=== PATIENT | male | born 1940 | race Caucasian/White ===

== ENCOUNTER 2018-02-23 14:10 | Inpatient (IN) | payer OTHER, BC ==
--- NOTE | 2018-02-23 15:14 | RAD REPORT ---
EXAM DESCRIPTION: RAD - Chest Single View - 02/23/2018 3:08 pm CLINICAL HISTORY: CHEST PAIN Chest pain. COMPARISON: No comparisons FINDINGS: Portable technique limits examination quality. The lungs are grossly clear. The heart is upper limit of normal in size. No displaced fractures. IMPRESSION: No acute intrathoracic process suspected.
[2018-02-23 16:14] LABS: Absolute Lymphocytes (CBC) 1.2 K/uL (0.7-4.9); Absolute Monocytes 0.5 K/uL (0.1-1.3); Absolute Neutrophil 4.2 K/uL (1.8-8.0); Basophils % 0.7 % (0-1.3); Hematocrit 43.2 % (39.6-49.0); Lymphocytes % 19.9 % (15.3-44.8); MCH 31.2 pg (27.0-35.0); MCV 91.1 fL (80-100); Monocytes % 7.8 % (3.3-12.3); RBC Red Blood Cell Count 4.74 M/uL (4.33-5.43)
[2018-02-23 16:19] LABS: Protime INR 1.05
[2018-02-23 16:54] LABS: ALT/SGPT 35 U/L (12-78); AST/SGOT 47 U/L (15-37); Albumin 3.9 g/dL (3.4-5.0); Alkaline Phosphatase 71 U/L (45-117); BUN Blood Urea Nitrogen 14 mg/dL (7-18); Bicarbonate 24 mmol/L (21-32); Bilirubin Direct 0.2 mg/dL (0-0.2); Bilirubin Total 0.6 mg/dL (0.2-1.0); Glucose Level 93 mg/dL (74-106); Magnesium 2.3 mg/dL (1.8-2.4); NT PRO-BNP 1105 pg/mL (<450); Potassium 3.9 mmol/L (3.5-5.1); Protein, Total 7.5 g/dL (6.4-8.2); Sodium Level 142 mmol/L (136-145)
[2018-02-23 16:56] LABS: Troponin (Emerg Dept Use Only) 6.76 ng/mL (0.0-0.045)
[2018-02-23] MEDS ORDERED: ACETAMINOPHEN 500 MG TAB PO PRN (17:21)
[2018-02-23] MEDS: CLOPIDOGREL 75 MG TABLET PO SCH (17:21)
[2018-02-23] MEDS: ASPIRIN EC 81 MG TAB PO SCH (17:21)
[2018-02-23] MEDS ORDERED: ONDANSETRON 4 MG/2 ML VIAL IV PRN (17:21)
[2018-02-23] MEDS ORDERED: NITROGLYCERIN 0.4 MG/TAB SL PRN (17:21)
[2018-02-23] MEDS ORDERED: MORPHINE 2 MG/ML SYR IV PRN (17:21)
[2018-02-23] MEDS ORDERED: ASPIRIN 81 MG CHEWABLE TABLET ONE (17:30)
[2018-02-23] MEDS ORDERED: CLOPIDOGREL 75 MG TABLET ONE (17:31)
[2018-02-23] MEDS ORDERED: HEPARIN/D5W 25,000 UNIT/500 ML BAG IV ONE (17:31)
--- NOTE | 2018-02-23 17:32 | ER ---
Nurse's Notes [facility] Name: Virgilio Moore Age: 77 yrs Sex: Male : 1940 Arrival Date: 02/23/2018 Time: 14:15 Bed 15 Private MD: Sheryl Rendon H Diagnosis: Non-ST elevation (NSTEMI) myocardial infarction Presentation: 02/23 14:16 Presenting complaint: Patient states: Woke up feeling shaky this morning. states, ss "Friday night he had heart burn real bad and stayed up for an hour on the side of the bed." Pt denies CP, shortness of breath. Pt is concerned his BP may be high. Transition of care: patient was not received from another setting of care. Onset of symptoms was February 23, 2018. Risk Assessment: Do you want to hurt yourself or someone else? Patient reports no desire to harm self or others. Initial Sepsis Screen: Does the patient meet any 2 criteria? No. Patient's initial sepsis screen is negative. Does the patient have a suspected source of infection? No. Patient's initial sepsis screen is negative. Care prior to arrival: None. 14:16 Method Of Arrival: Ambulatory ss 14:16 Acuity: DAVID 2 ss Historical: - Allergies: 14:19 No Known Allergies; ss - Home Meds: 14:19 None [Active]; ss - PMHx: 14:19 None; ss - PSHx: 14:19 eye surgery; ss - Immunization history:: Adult Immunizations up to date. - Social history:: Smoking status: Patient uses tobacco products. - Ebola Screening: : Patient denies exposure to infectious person Patient denies travel to an Ebola-affected area in the 21 days before illness onset. Screenin:10 Abuse screen: Denies threats or abuse. Denies injuries from another. Nutritional bp screening: No deficits noted. Tuberculosis screening: No symptoms or risk factors identified. Fall Risk None identified. Assessment: 14:30 General: Appears in no apparent distress. comfortable, Behavior is calm, cooperative, bp appropriate for age. Pain: Denies pain. Neuro: Level of Consciousness is awake, alert, obeys commands, Oriented to person, place, time, situation, Appropriate for age. Cardiovascular: No deficits noted. Respiratory: Airway is patent Respiratory effort is even, unlabored, Respiratory pattern is regular, symmetrical. GI: No signs and/or symptoms were reported involving the gastrointestinal system. : No signs and/or symptoms were reported regarding the genitourinary system. EENT: No deficits noted. Derm: No deficits noted. Musculoskeletal: Circulation, motion, and sensation intact. Range of motion: intact in all extremities. 16:08 Reassessment: LABS REDRAWN AND SENT. ALL CURRENT ORDERS COMPLETED. bp 19:15 Reassessment: Patient appears in no apparent distress at this time. Patient and/or cc3 family updated on plan of care and expected duration. Pain level reassessed. Patient is alert, oriented x 3, equal unlabored respirations, skin warm/dry/pink. Received this male patient from morning shift RN Ronaldo as a case of high blood pressure for admission waiting for bed availability. With IV cannula gauge 20 at the right hand with ongoing heparin infusion 1000 unit/hr running at 20 mL/hr infusing well. 19:50 Reassessment: Room available in ICU bed 2, report handed over to TANVI William for cc3 continuity of care. 20:20 Reassessment: Patient appears in no apparent distress at this time. Patient and/or cc3 family updated on plan of care and expected duration. Pain level reassessed. Patient is alert, oriented x 3, equal unlabored respirations, skin warm/dry/pink. Patient left ER for admission vitally stable, on continuous cardiac monitoring by stretcher escorted by [facility] and [facility] with the family. Vital Signs: 14:19 BP 202 / 96; Pulse 91; Resp 18; Temp 98.1; Pulse Ox 100% on R/A; Weight 93.89 kg; ss Height 5 ft. 8 in. (172.72 cm); Pain 0/10; 15:00 BP 165 / 90; Pulse 87; Resp 14; Pulse Ox 98% ; bp 16:00 BP 161 / 89; Pulse 78; Resp 14; Pulse Ox 98% ; bp 17:00 BP 164 / 92; Pulse 86; Resp 14; Pulse Ox 97% ; bp 18:00 BP 175 / 90; Pulse 88; Resp 14; Pulse Ox 98% ; bp 19:15 BP 136 / 80; Pulse 60; Resp 18 S; Pulse Ox 97% on R/A; Pain 0/10; cc3 20:12 BP 141 / 84; Pulse 61; Resp 16 S; Pulse Ox 98% on R/A; Pain 0/10; cc3 14:19 Body Mass Index 31.47 (93.89 kg, 172.72 cm) ED Course: 14:15 Patient arrived in ED. mr 14:15 Sheryl Rendon is Private Physician. mr 14:18 Triage completed. ss 14:19 Arm band placed on right wrist. ss 14:26 Ronaldo Welch, RN is Primary Nurse. bp 14:30 Inserted saline lock: 20 gauge in right wrist, using aseptic technique. Blood collected.bp 14:40 Mikhail Croft MD is Attending Physician. gs 15:09 XRAY Chest (1 view) In Process Unspecified. EDMS 16:10 Patient has correct armband on for positive identification. Bed in low position. Call bp light in reach. Side rails up X2. Adult w/ patient. 17:31 Mikhail Croft MD is Hospitalizing Provider. gs 19:50 No provider procedures requiring assistance completed. Patient admitted, IV remains in cc3 place. Administered Medications: 17:41 Drug: Aspirin Chewable Tablet 324 mg Route: PO; bp 19:15 Follow up: Response: No adverse reaction cc3 17:41 Drug: PlaVIX 75 mg Route: PO; bp 19:15 Follow up: Response: No adverse reaction cc3 17:47 Drug: Heparin ([place] Drip) 12 units/kg/hr - (HEParin 23025 units, D5W 500 ml) bp {Co-Signature: ss (Marybeth Zaragoza RN).} Route: IV; Rate: calculated rate; Site: right wrist; 19:50 Follow up: IV Status: Infusion continued upon admission cc3 17:58 Drug: Lopressor 25 mg Route: PO; bp 19:15 Follow up: Response: No adverse reaction; Blood pressure is lowered cc3 Outcome: 17:32 Decision to Hospitalize by Provider. gs 19:50 Admitted to ICU accompanied by nurse, accompanied by tech, family with patient, via cc3 stretcher, room 2, on monitor, with chart, Report called to TANVI William 19:50 Condition: stable 19:50 Instructed on the need for admit, Demonstrated understanding of instructions. 20:37 Patient left the ED. cc3 Signatures: Dispatcher [employer] Good mr Marybeth Zaragoza TANVI RN ss Mikhail Croft MD MD Ronaldo Welch, TANVI RN Martha Mccullough 3 Marybeth Zaragoza RN ss
--- NOTE | 2018-02-23 17:33 | EDPHYS ---
Physician Documentation [facility] Name: Virgilio Moore Age: 77 yrs Sex: Male : 1940 Arrival Date: 02/23/2018 Time: 14:15 Bed 15 Private MD: Sheryl Rendon H ED Physician Mikhail Croft HPI: 02/23 17:27 This 77 yrs old Male presents to ER via Ambulatory with complaints of High gs Blood Pressure. 17:27 The patient has elevated blood pressure and discovered this at home. Onset: The gs symptoms/episode began/occurred gradually, 3 day(s) ago. Modifying factors: The symptoms are aggravated by. Associated signs and symptoms: Pertinent positives: chest pain, epigastric burning. Severity of symptoms: At its worst the blood pressure was severe, in the emergency department the blood pressure is unchanged. The patient has experienced similar episodes in the past, a few times. Historical: - Allergies: 14:19 No Known Allergies; ss - Home Meds: 14:19 None [Active]; ss - PMHx: 14:19 None; ss - PSHx: 14:19 eye surgery; ss - Immunization history:: Adult Immunizations up to date. - Social history:: Smoking status: Patient uses tobacco products. - Ebola Screening: : Patient denies exposure to infectious person Patient denies travel to an Ebola-affected area in the 21 days before illness onset. ROS: 17:27 All other systems are negative. gs Exam: 17:27 Head/Face: Normocephalic, atraumatic. Eyes: Pupils equal round and reactive to light, gs extra-ocular motions intact. Lids and lashes normal. Conjunctiva and sclera are non-icteric and not injected. Cornea within normal limits. Periorbital areas with no swelling, redness, or edema. ENT: Nares patent. No nasal discharge, no septal abnormalities noted. Tympanic membranes are normal and external auditory canals are clear. Oropharynx with no redness, swelling, or masses, exudates, or evidence of obstruction, uvula midline. Mucous membranes moist. Neck: Trachea midline, no thyromegaly or masses palpated, and no cervical lymphadenopathy. Supple, full range of motion without nuchal rigidity, or vertebral point tenderness. No Meningismus. Chest/axilla: Normal chest wall appearance and motion. Nontender with no deformity. No lesions are appreciated. Respiratory: Lungs have equal breath sounds bilaterally, clear to auscultation and percussion. No rales, rhonchi or wheezes noted. No increased work of breathing, no retractions or nasal flaring. Abdomen/GI: Soft, non-tender, with normal bowel sounds. No distension or tympany. No guarding or rebound. No evidence of tenderness throughout. Back: No spinal tenderness. No costovertebral tenderness. Full range of motion. Skin: Warm, dry with normal turgor. Normal color with no rashes, no lesions, and no evidence of cellulitis. MS/ Extremity: Pulses equal, no cyanosis. Neurovascular intact. Full, normal range of motion. Neuro: Awake and alert, GCS 15, oriented to person, place, time, and situation. Cranial nerves II-XII grossly intact. Motor strength 5/5 in all extremities. Sensory grossly intact. Cerebellar exam normal. Normal gait. 17:27 Constitutional: The patient appears alert, awake. 17:27 Cardiovascular: Rate: normal, Rhythm: irregular, Pulses: no pulse deficits are appreciated, Heart sounds: murmur, systolic, grade 1 over 6, Edema: 1+ edema to level of left midcalf and right midcalf. 17:27 ECG was reviewed by the Attending Physician. Vital Signs: 14:19 BP 202 / 96; Pulse 91; Resp 18; Temp 98.1; Pulse Ox 100% on R/A; Weight 93.89 kg; ss Height 5 ft. 8 in. (172.72 cm); Pain 0/10; 15:00 BP 165 / 90; Pulse 87; Resp 14; Pulse Ox 98% ; bp 16:00 BP 161 / 89; Pulse 78; Resp 14; Pulse Ox 98% ; bp 17:00 BP 164 / 92; Pulse 86; Resp 14; Pulse Ox 97% ; bp 18:00 BP 175 / 90; Pulse 88; Resp 14; Pulse Ox 98% ; bp 19:15 BP 136 / 80; Pulse 60; Resp 18 S; Pulse Ox 97% on R/A; Pain 0/10; cc3 20:12 BP 141 / 84; Pulse 61; Resp 16 S; Pulse Ox 98% on R/A; Pain 0/10; cc3 14:19 Body Mass Index 31.47 (93.89 kg, 172.72 cm) MDM: 15:59 Patient medically screened. 17:27 Differential diagnosis: hypertensive crisis, Malignant HTN, gerd,mi. Data reviewed: vital signs, nurses notes, lab test result(s), EKG. Counseling: I had a detailed discussion with the patient and/or guardian regarding: the historical points, exam findings, and any diagnostic results supporting the discharge/admit diagnosis, lab results, radiology results, the need for further work-up and treatment in the hospital. 02/23 14:39 Order name: Basic Metabolic Panel 02/23 14:39 Order name: CBC with Diff; Complete Time: 16:50 02/23 14:39 Order name: LFT's 02/23 14:39 Order name: Magnesium 02/23 14:39 Order name: NT PRO-BNP 02/23 14:39 Order name: PT-INR; Complete Time: 16:50 02/23 14:39 Order name: Troponin (emerg Dept Use Only) 02/23 17:34 Order name: Lipid Profile [facility] 02/23 17:34 Order name: CBC with Automated Diff [facility] 02/23 17:34 Order name: CBC with Automated Diff [facility] 02/23 17:34 Order name: Comprehensive Metabolic Panel [facility] 02/23 17:34 Order name: Comprehensive Metabolic Panel [facility] 02/23 17:34 Order name: Magnesium [facility] 02/23 17:34 Order name: Magnesium [facility] 02/23 14:26 Order name: EKG; Complete Time: 14:27 02/23 14:26 Order name: EKG - Nurse/Tech; Complete Time: 16:08 02/23 14:39 Order name: XRAY Chest (1 view); Complete Time: 16:50 02/23 14:39 Order name: Cardiac monitoring; Complete Time: 16:08 02/23 14:39 Order name: IV Saline Lock; Complete Time: 16:08 02/23 14:39 Order name: Labs collected and sent; Complete Time: 16:08 02/23 14:39 Order name: O2 Per Protocol; Complete Time: 16:08 02/23 14:39 Order name: O2 Sat Monitoring; Complete Time: 16:08 02/23 17:34 Order name: CONS Physician Consult [facility] 02/23 17:34 Order name: Heart Healthy [facility] 02/23 17:34 Order name: Echo with Doppler EDMS EC:27 Rate is 81 beats/min. Rhythm is irregular. SD interval is normal. QRS interval is gs normal. QT interval is normal. Q waves are Old in leads V1, V2, V3. T waves are Inverted in leads I, aVL. Clinical impression: NSR w/ Non-specific ST/T Changes. Interpreted by me. Administered Medications: 17:41 Drug: Aspirin Chewable Tablet 324 mg Route: PO; bp 19:15 Follow up: Response: No adverse reaction cc3 17:41 Drug: PlaVIX 75 mg Route: PO; bp 19:15 Follow up: Response: No adverse reaction cc3 17:47 Drug: Heparin ([place] Drip) 12 units/kg/hr - (HEParin 25240 units, D5W 500 ml) bp {Co-Signature: ss (Marybeth Zaragoza RN).} Route: IV; Rate: calculated rate; Site: right wrist; 19:50 Follow up: IV Status: Infusion continued upon admission cc3 17:58 Drug: Lopressor 25 mg Route: PO; bp 19:15 Follow up: Response: No adverse reaction; Blood pressure is lowered cc3 Disposition: 02/23/18 17:32 Hospitalization ordered by Mikhail Croft for Inpatient Admission. Preliminary diagnosis is Non-ST elevation (NSTEMI) myocardial infarction. - Bed requested for Intensive Care Unit. - Status is Inpatient Admission. cc3 - Condition is Stable. - Problem is new. - Symptoms have improved. UTI on Admission? No Critical care time excluding procedures: 17:27 Critical care time: Bedside Care: 10 minutes, Consultation: 10 minutes, Family gs Intervention: 10 minutes. Total time: 30 minutes Signatures: Dispatcher [employer] [facility] Marybeth Zaragoza RN RN ss Yolanda Smalls RN RN Mikhail Croft MD MD Ronaldo Welch RN RN Martha Mccullough cc3 Marybeth Zaragoza RN ss Corrections: (The following items were deleted from the chart) 17:57 17:32 Hospitalization Ordered by Mikhail Croft MD for Inpatient Admission. Preliminary gs diagnosis is Non-ST elevation (NSTEMI) myocardial infarction. Bed requested for Telemetry/MedSurg (Inpatient). Status is Inpatient Admission. Condition is Stable. Problem is new. Symptoms have improved. UTI on Admission? No. 19:20 17:57 02/23/2018 17:32 Hospitalization Ordered by Mikhail Croft MD for Inpatient cg Admission. Preliminary diagnosis is Non-ST elevation (NSTEMI) myocardial infarction. Bed requested for Intensive Care Unit. Status is Inpatient Admission. Condition is Stable. Problem is new. Symptoms have improved. UTI on Admission? No. 20:37 19:20 02/23/2018 17:32 Hospitalization Ordered by Mikhail Croft MD for Inpatient cc3 Admission. Preliminary diagnosis is Non-ST elevation (NSTEMI) myocardial infarction. Bed requested for Intensive Care Unit. Status is Inpatient Admission. Condition is Stable. Problem is new. Symptoms have improved. UTI on Admission? No. cg
[2018-02-23] MEDS ORDERED: METOPROLOL TAR 25 MG TAB ONE (18:00)
[2018-02-23] MEDS ORDERED: HEPARIN/D5W 25,000 UNIT/500 ML BAG IV SCH (19:00)
[2018-02-23] MEDS: METOPROLOL TAR 25 MG TAB PO SCH (21:00)
[2018-02-23] MEDS: ATORVASTATIN 80 MG TAB PO SCH (22:59)
[2018-02-24 05:04] LABS: Absolute Lymphocytes (CBC) 2.1 K/uL (0.7-4.9); Absolute Monocytes 0.9 K/uL (0.1-1.3); Absolute Neutrophil 4.4 K/uL (1.8-8.0); Basophils % 0.6 % (0-1.3); Eosinophils % 3.8 % (0-4.4); Hematocrit 41.1 % (39.6-49.0); Lymphocytes % 27.3 % (15.3-44.8); MCH 31.7 pg (27.0-35.0); MCV 92.8 fL (80-100); MPV 9.9 fL (7.6-11.3); Monocytes % 11.1 % (3.3-12.3); RBC Red Blood Cell Count 4.43 M/uL (4.33-5.43)
[2018-02-24 05:24] LABS: ALT/SGPT 31 U/L (12-78); AST/SGOT 68 U/L (15-37); Albumin 3.3 g/dL (3.4-5.0); Alkaline Phosphatase 57 U/L (45-117); BUN Blood Urea Nitrogen 12 mg/dL (7-18); Bicarbonate 27 mmol/L (21-32); Bilirubin Total 0.6 mg/dL (0.2-1.0); Glucose Level 109 mg/dL (74-106); HDL Cholesterol 44 mg/dL (40-60); LDL Cholesterol, Calculated 145 (<130); Magnesium 2.2 mg/dL (1.8-2.4); Potassium 4.1 mmol/L (3.5-5.1); Protein, Total 6.5 g/dL (6.4-8.2); Sodium Level 140 mmol/L (136-145)
--- NOTE | 2018-02-24 07:06 | EKG ---
Test Date: 2018-02-23 Test Time: 14:39:15 Shake Packer: GUSTAVO MEASUREMENT RESULTS: Intervals: Rate: 81 HI: 166 QRSD: 74 QT: 376 QTc: 436 [place]: P: 55 HI: 166 QRS: -7 T: 99 INTERPRETIVE STATEMENTS: Sinus rhythm with premature atrial complexes Anteroseptal infarct, age undetermined Abnormal ECG Compared to ECG 12/04/2001 11:07:00 Atrial premature complex(es) now present Myocardial infarct finding now present Electronically Signed On 02-24-18 07:05:41 MILLING SUPERVISOR by Milo Mckinney
[2018-02-24] MEDS: METOPROLOL TAR 25 MG TAB PO SCH ×2 (08:43→21:00)
[2018-02-24] MEDS: ASPIRIN EC 81 MG TAB PO SCH (08:44)
[2018-02-24] MEDS: CLOPIDOGREL 75 MG TABLET PO SCH (08:44)
[2018-02-24] MEDS: LISINOPRIL 10 MG TAB PO SCH (08:44)
[2018-02-24] MEDS ORDERED: LIDOCAINE 1% MPF 30 ML VIAL ONE (11:46)
[2018-02-24] MEDS ORDERED: HEPA 1000U/500MLS 1,000 UNIT/500 ML BAG IV ONE (11:46)
[2018-02-24] MEDS ORDERED: NA CHLORIDE 0.9% 500 ML ONE (12:05)
[2018-02-24] MEDS ORDERED: MIDAZOLAM HCL 2 MG/2 ML INJ ONE ×2 (12:07→12:15)
[2018-02-24] MEDS ORDERED: FENTANYL CITR 100 MCG/2 ML ONE (12:07)
[2018-02-24] MEDS ORDERED: NA CHLORIDE 0.9% 0 ML ONE (12:08)
[2018-02-24] MEDS ORDERED: ATROPINE SULF 1 MG/10 ML SYR IV ONE (12:08)
--- NOTE | 2018-02-24 12:22 | ECHO ---
HEIGHT: 5 ft 8 in WEIGHT: 207 lb 0 oz DATE OF STUDY: 02/24/[address]: 2-DIMENSIONAL: YES M.MODE: YES DOPPLER: YES COLOR FLOW: YES TDS: NO PORTABLE: NO DEFINITY: NO BUBBLE STUDY: NO DIAGNOSIS: NON ST ELEVATION MYOCARDIAL INFARCTION CARDIAC HISTORY: CATHERIZATION: SURGERY: PROSTHETIC VALVE: PACEMAKER: MEASUREMENTS (cm) DIASTOLIC (NORMALS) SYSTOLIC (NORMALS) IVSd 1.1 (0.6-1.2) LA Diam 4.5 (1.9-4.0) LVEF 57% LVIDd 4.7 (3.5-5.7) LVIDs 3.3 (2.0-3.5) %FS 30% LVPWd 1.2 (0.6-1.2) Ao Diam 3.0 (2.0-3.7) 2 DIMENSIONAL ASSESSMENT: RIGHT ATRIUM: NORMAL LEFT ATRIUM: DILATED RIGHT VENTRICLE: NORMAL LEFT VENTRICLE: NORMAL TRICUSPID VALVE: NORMAL MITRAL VALVE: NORMAL PULMONIC VALVE: NORMAL AORTIC VALVE: SCLEROSIS PERICARDIAL EFFUSION: NONE AORTIC ROOT: NORMAL LEFT VENTRICULAR WALL MOTION: NORMAL DOPPLER/COLOR FLOW: MILD TRICUSPID REGURGITATION. COMMENTS: LEFT ATRIAL ENLARGEMENT. NORMAL LEFT VENTRICULAR SIZE AND FUNCTION. AORTIC SCLEROSIS- NO STENOSIS. TECHNOLOGIST: PERNELL GUZMAN
--- NOTE | 2018-02-24 13:07 | P.HP ---
Certification for Inpatient Patient admitted to: Inpatient With expected LOS: >2 Midnights Practitioner: I am a practitioner with admitting privileges, knowledge of patient current condition, hospital course, and medical plan of care. Services: Services provided to patient in accordance with Admission requirements found in Title 42 Section 412.3 of the Code of Federal Regulations Patient History Date of Service: 02/23/18 Reason for admission: Elevated troponin with chest pain History of Present Illness: Patient is a 69-year-old gentleman who came to the hospital because of blood pressure was elevated. He has been having some mild chest discomfort for the last few days. He has felt like an epigastric burning. In the ER he was worked up with his troponins were elevated. Chest pain has pretty much resolved although he still feels a little her around the sternal region. There is no radiation of his chest pain at this time. He does feel pretty good. He mainly just has some questions about the cardiac catheterization that he will be undergoing. We spoke to him regarding etiology of his chest pain, and the different interventions he could underago. Allergies No Known Allergies Allergy (Unverified 02/23/18 17:57) Home Medications: NK [No Home Meds] 02/23/18 - Past Medical/Surgical History Has patient received pneumonia vaccine in the past: No Diabetic: No -: HTN -: eyes surgery left eye lens implant - Family History Father History Unknown: Yes Medical History: Heart disease Mother Medical History: Cancer Sister Medical History: Stroke - Social History Smoking Status: Former smoker Alcohol use: Yes CD- Drugs: No Caffeine use: Yes Place of Residence: Home Review of Systems 10-point ROS is otherwise unremarkable Physical Examination - Vital Signs Temperature: 97.6 F Blood Pressure: 133/70 Pulse: 56 Respirations: 16 Pulse Ox (%): 96 - Physical Exam General: Alert, In no apparent distress, Oriented x3 HEENT: Atraumatic, PERRLA, Mucous membr. moist/pink, EOMI, Sclerae nonicteric Neck: Supple, 2+ carotid pulse no bruit, No LAD, Without JVD or thyroid abnormality Respiratory: Clear to auscultation bilaterally, Normal air movement Cardiovascular: Regular rate/rhythm, Normal S1 S2, No murmurs Gastrointestinal: Normal bowel sounds, Soft and benign, Non-distended, No tenderness, No rebound, No guarding Musculoskeletal: No clubbing, No swelling, No tenderness Integumentary: No rashes Neurological: Normal gait, Normal speech, Normal strength at 5/5 x4 extr, Normal tone, Sensation intact, Cranial nerves 3-12 intact, Normal affect Lymphatics: No axilla or inguinal lymphadenopathy - Studies Laboratory Data (last 24 hrs) 02/23/18 15:07: PT 12.4, INR 1.05 02/23/18 15:07: WBC 6.0, Hgb 14.8, Hct 43.2, Plt Count 200 02/23/18 15:07: Sodium 142, Potassium 3.9, BUN 14, Creatinine 0.70, Glucose 93, Magnesium 2.3, Total Bilirubin 0.6, AST 47 H, ALT 35, Alkaline Phosphatase 71 Assessment & Plan - Problems (Diagnosis) (1) HTN (hypertension) Current Visit: Yes Status: Acute (2) NSTEMI (non-ST elevated myocardial infarction) Current Visit: Yes Status: Acute - Plan 1. Cardiology consultation 2. Cardiac catheterization in the morning 3. In the morning will give anti-platelet therapy, anticoagulation, beta-butch , statin, and O2 as needed 4. IV morphine for pain 5. Nitro p.r.n. 6. NPO Discharge Plan: Home Plan to discharge in: Greater than 2 days - Advance Directives Does patient have a Living Will: No Does patient have a Durable POA for Healthcare: Yes - Code Status/Comfort Care Code Status Assessed: Yes Code Status: Full Code Critical Care: No Time Spent Managing PTS Care (In Minutes): 60
--- NOTE | 2018-02-24 13:58 | CON ---
Date of Consultation: 02/24/[address] patient admitted to Dr. Feldman's service on 02/23/2018 for a aha-[id number] myocardial infarctio n and hypertension. I saw the patient on 02/24/2018. History Of Present Illness: Mr. Moore is 77, has been very healthy. He does not take any medicati on. He came in with hypertension and atypical chest pain. He had positive troponin of 6.76. BNP wa s 1105. Denied PND, orthopnea, pedal edema, palpitation, or syncope. Past Medical History: Negative. Allergies: NONE. Medications: None. Review of Systems: Negative. Social History: Negative. Family History: Negative. Physical Examination: Vital Signs: Stable. He was afebrile. HEENT: Negative. Neck: Supple without any bruit, lymphadenopathy, JVD, or thyromegaly. Chest: Clear to auscultation and percussion. Cardiac: Revealed a regular rhythm and rate with an S4 gallops. No murmurs or rubs. Abdomen: Benign. Extremities: Revealed no clubbing, cyanosis, or edema. Diagnostic Data: Stated earlier. EKG was nonspecific. Chest x-ray is negative. Impression And Plan: Acn-[id number] myocardial infarction with hypertension. A heart catheterizat ion will be planned for today. The patient understands the risks and the benefits of the procedure a nd he agrees to proceed. Continue his present medications now including aspirin, Lovenox, Plavix, an d metoprolol. ELIZA/WADE Voice ID: [id number] Report ID: [id number]
[2018-02-24] MEDS: ATORVASTATIN 80 MG TAB PO SCH (21:26)
--- NOTE | 2018-02-24 21:26 | P.PN ---
Subjective Date of Service: 02/24/18 Chief Complaint: Elevated troponin with chest pain Patient seen and examined. Chart reviewed and case discussed with nursing staff. No new complaints this am. Review of Systems As noted Physical Examination - Vital Signs Temperature: 98.4 F Blood Pressure: 108/53 Pulse: 69 Respirations: 17 Pulse Ox (%): 97 - Physical Exam General: Alert, In no apparent distress HEENT: Atraumatic, PERRLA, EOMI Neck: Supple, JVD not distended Respiratory: Clear to auscultation bilaterally, Normal air movement Cardiovascular: Regular rate/rhythm, Normal S1 S2 Gastrointestinal: Normal bowel sounds, No tenderness Musculoskeletal: No tenderness Integumentary: No rashes Neurological: Normal speech, Normal tone, Normal affect Lymphatics: No axilla or inguinal lymphadenopathy Assessment And Plan - Plan - Problems (Diagnosis) (1) HTN (hypertension) Current Visit: Yes Status: Acute (2) NSTEMI (non-ST elevated myocardial infarction) Current Visit: Yes Status: Acute - Plan 1. Cardiology consultation, Recommendations appreciated. 2. Cardiac catheterization today 3. Anti-platelet therapy, anticoagulation, beta-butch, statin, and O2 as needed 4. IV morphine for pain 5. Nitro p.r.n. 6. NPO for procedure. Dispo: pending cardiac cath
--- NOTE | 2018-02-25 00:16 | OP ---
Date of Procedure: 02/24/2018 Surgeon: Milo Mckinney MD Occ Therapist: Julia Crow. Indication: The patient was admitted to Dr. Feldman's service on 02/23/2018 with a non-ST elevation my ocardial infarction. A left heart catheterization was planned for 02/24/2018. He was brought to the [facility] as an [facility]. The indication was a non ST elevation myocardial infarction. Procedures: 1.Left heart catheterization. 2.Selective coronary arteriogram. 3.Left ventriculogram. Description Of Procedure: The patient was prepped and draped in the routine sterile fashion. He got 2 mg of Versed for IV sedation. Right common femoral artery access was obtained with a 6-[place] she ath. Angiogram there was normal. Angio-Seal was used to close the case. 6-[place] Sha catheters , left and right were used to do the coronary angiography. He had a very proximal LAD occlusion that was complete, appeared to be old and chronic. . The distal LAD appears to be small. He h ad a normal circumflex codominant system. He had a large RCA, 30% to 40% mid RCA, 80% ostial PDA, no rmal ejection fraction, normal end-diastolic left ventricular pressure, normal wall motion. 6-[place] catheters were used. Complications: None. Estimated Blood Loss: 5 cc. Postoperative Diagnosis: Severe coronary artery disease. Plan: Presently is for medical therapy with beta blockers, aspirin, Plavix, NOEMY inhibitors. Chief Architect: Milo Mckinney MD. Total Conscious Sedation: 30 minutes. ELIZA/AKIKOL Voice ID: [id number] Report ID: [id number]
[2018-02-25 05:21] LABS: Hematocrit 39.4 % (39.6-49.0); MCH 31.6 pg (27.0-35.0); MCV 91.7 fL (80-100); RBC Red Blood Cell Count 4.29 M/uL (4.33-5.43)
[2018-02-25 05:22] LABS: Absolute Lymphocytes (CBC) 1.8 K/uL (0.7-4.9); Absolute Monocytes 0.8 K/uL (0.1-1.3); Absolute Neutrophil 4.2 K/uL (1.8-8.0); Basophils % 0.5 % (0-1.3); Lymphocytes % 25.5 % (15.3-44.8); MPV 10.2 fL (7.6-11.3); Monocytes % 11.8 % (3.3-12.3)
[2018-02-25 05:48] LABS: BUN Blood Urea Nitrogen 13 mg/dL (7-18); Bicarbonate 26 mmol/L (21-32); Glucose Level 91 mg/dL (74-106); Magnesium 2.4 mg/dL (1.8-2.4); Potassium 3.9 mmol/L (3.5-5.1); Sodium Level 142 mmol/L (136-145)
[2018-02-25] MEDS: LISINOPRIL 10 MG TAB PO SCH (08:34)
[2018-02-25] MEDS: METOPROLOL TAR 25 MG TAB PO SCH (08:34)
[2018-02-25] MEDS: ASPIRIN EC 81 MG TAB PO SCH (08:34)
[2018-02-25] MEDS: CLOPIDOGREL 75 MG TABLET PO SCH (08:35)
--- NOTE | 2018-02-25 14:11 | P.DS ---
Admission Date: 02/23/18 Discharge Date: 02/25/18 Disposition: ROUTINE DISCHARGE Discharge Condition: GOOD Reason for Admission: Elevated troponin with chest pain Brief History of Present Illness: Patient is a 69-year-old gentleman who came to the hospital because of blood pressure was elevated. He has been having some mild chest discomfort for the last few days. He has felt like an epigastric burning. In the ER he was worked up with his troponins were elevated. Chest pain has pretty much resolved although he still feels a little her around the sternal region. There is no radiation of his chest pain at this time. He does feel pretty good. He mainly just has some questions about the cardiac catheterization that he will be undergoing. We spoke to him regarding etiology of his chest pain, and the different interventions he could underago. Hospital Course: Patient came to the hospital for elevated blood pressure, he was admitted for chest discomfort. He was found to have elevated troponins, diagnosed with non ST elevated myocardial infarction. Cardiology was consulted, he underwent a cardiac catheterization, which revealed 100% blockage in the LAD. He was not deemed a candidate for any stent placement/CABG at this time. Per cardiology recommendations, he is to medically managed. He will be discharged on aspirin 81 mg daily, Plavix 75 mg daily, atorvastatin 80 mg daily, lisinopril 10 mg daily, metoprolol 12.5 mg b.i.d. he will also receive a prescription for nitroglycerin sublingual tablets as needed for chest pain. Counseled extensively on lifestyle modifications including heart healthy diet, exercise for losing weight. We also discussed the importance of keeping follow up with cardiology for further evaluation/treatment changes. Counseled on taking medications regularly as prescribed. At the time of discharge, he was hemodynamically stable, denying any chest pain , was tolerating regular diet, ambulating normally. His diagnoses and instructions were explained, all questions were answered. Patient verbalized understanding. 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 Vital Signs/Physical Exam: Temp Pulse Resp BP Pulse Ox 97.5 F 86 26 H 101/66 96 02/25/18 12:00 02/25/18 12:00 02/25/18 12:00 02/25/18 12:00 02/25/18 10:00 General: Alert, In no apparent distress, Oriented x3 HEENT: Atraumatic, PERRLA, EOMI Neck: Supple, JVD not distended Respiratory: Clear to auscultation bilaterally, Normal air movement Cardiovascular: Regular rate/rhythm, Normal S1 S2 Gastrointestinal: Normal bowel sounds, No tenderness Musculoskeletal: No tenderness Integumentary: No rashes Neurological: Normal speech, Normal tone, Normal affect Lymphatics: No axilla or inguinal lymphadenopathy Laboratory Data at Discharge: WBC 7.1 K/uL (4.3-10.9) 02/25/18 04:53 Hgb 13.6 g/dL (13.6-17.9) 02/25/18 04:53 Hct 39.4 % (39.6-49.0) L 02/25/18 04:53 Plt Count 172 K/uL (152-406) 02/25/18 04:53 PT 12.4 SECONDS (9.5-12.5) 02/23/18 15:07 INR 1.05 02/23/18 15:07 APTT 58.4 SECONDS (24.3-36.9) H 02/24/18 04:28 Sodium 142 mmol/L (136-145) 02/25/18 04:53 Potassium 3.9 mmol/L (3.5-5.1) 02/25/18 04:53 BUN 13 mg/dL (7-18) 02/25/18 04:53 Creatinine 0.70 mg/dL (0.55-1.3) 02/25/18 04:53 Glucose 91 mg/dL (74-106) 02/25/18 04:53 Magnesium 2.4 mg/dL (1.8-2.4) 02/25/18 04:53 Total Bilirubin 0.6 mg/dL (0.2-1.0) 02/24/18 04:28 AST 68 U/L (15-37) H 02/24/18 04:28 ALT 31 U/L (12-78) 02/24/18 04:28 Alkaline Phosphatase 57 U/L (45-117) 02/24/18 04:28 Troponin I 11.00 ng/mL (0.0-0.045) H* 02/25/18 04:53 Triglycerides Cancelled 02/24/18 05:00 Cholesterol Cancelled 02/24/18 05:00 HDL Cholesterol Cancelled 02/24/18 05:00 Cholesterol/HDL Ratio Cancelled 02/24/18 05:00 Home Medications: Atorvastatin Calcium [Lipitor] 80 mg PO BEDTIME #30 tab 02/25/18 Clopidogrel Bisulfate [Plavix*] 75 mg PO DAILY #30 tablet 02/25/18 Lisinopril [Prinivil*] 10 mg PO DAILY #30 tab 02/25/18 Metoprolol Tartrate 25 mg PO DIRECTED #15 tablet 02/25/18 Nitroglycerin [Nitrostat*] 0.4 mg SL UD PRN #15 tab 02/25/18 New Medications: Atorvastatin Calcium [Lipitor] 80 mg PO BEDTIME #30 tab Clopidogrel Bisulfate [Plavix*] 75 mg PO DAILY #30 tablet Lisinopril [Prinivil*] 10 mg PO DAILY #30 tab Metoprolol Tartrate 25 mg PO DIRECTED #15 tablet Nitroglycerin [Nitrostat*] 0.4 mg SL UD PRN #15 tab PRN Reason: Chest Pain Patient Discharge Instructions: Please follow up with your primary care physician in 1 week. Please follow up with Cardiology in 2 weeks. Information provided. New Medications: Metoprolol, lisinopril, atorvastatin, Plavix, Nitroglycerin. In addition to this, please also take 1 aspirin 81 mg daily. Diet: AHA Activity: Ad kiana Followup: Milo Mckinney MD [ACTIVE - CAN ADMIT] - Physician Review: Patient Assessed, Agree with Above Assessment and Plan Time spent managing pt's care (in minutes): 55
== END 2018-02-25 13:50 | disposition home or self-care (01) | DRG 282 ==
LOC: ER 14:10 → ERHOLD 17:30 → 3RD-ICU 19:56
PROVIDERS: ADMIT Family Medicine; ATTEND Family Medicine
PROC: 4A023N7 Measurement of Cardiac Sampling and Pressure, Left Heart, Percutaneous Approach (ICD-10-PCS; principal; 2018-02-24)
PROC: B211YZZ Fluoroscopy of Multiple Coronary Arteries using Other Contrast (ICD-10-PCS; 2018-02-24)
PROC: B215YZZ Fluoroscopy of Left Heart using Other Contrast (ICD-10-PCS; 2018-02-24)
DX: I21.4 Non-ST elevation (NSTEMI) myocardial infarction (principal); I25.10 Atherosclerotic heart disease of native coronary artery without angina pectoris; I25.82 Chronic total occlusion of coronary artery; I10 Essential (primary) hypertension; Z87.891 Personal history of nicotine dependence
CPT/HCPCS: 36415; 71045; 80048; 80053; 80061; 80076; 83735; 83880; 84484; 85025; 85610; 85730; 93005; 93306; 93458; 94760; 96365; 96366; 99285; C1760; C1893; J0583; J2250; J3010